=== PATIENT | female | born 1980 | race Caucasian/White ===

== ENCOUNTER 2017-04-02 19:52 | Emergency (ER) | payer MEDICAID ==
[~2017-04-02] VITALS: Ht 162.6 cm; Wt 56.5 kg
[~2017-04-02 19:52] MED LIST: CIPR500T4 PO; DICY10CA60 PO; IBUP-1542 PO; ONDA4TAB35 PO
[2017-04-02 19:57] VITALS: Ht 162.6 cm; Wt 56.5 kg
[2017-04-02] MEDS ORDERED: SOD CHLORIDE 0.9% 1,000 ML IV STA (20:14)
[2017-04-02] MEDS ORDERED: DIPHENHYDRAMINE 50 MG INJ IV STA (20:14)
[2017-04-02] MEDS ORDERED: KETOROLAC 30 MG INJ IV STA (20:14)
[2017-04-02] MEDS ORDERED: METOCLOPRAMIDE 10 MG INJ IV STA (20:14)
[2017-04-02 20:44] LABS: BASOPHIL # 0.1 10^3/ul (0.0-0.1); BASOPHILS % 0.5 % (0.0-2.0); EOSINOPHILS % 0.2 % (0.0-7.0); HEMATOCRIT 38.6 % (37.0-47.0); HEMOGLOBIN 12.5 g/dl (12.0-16.0); LYMPHOCYTES # 1.5 10^3/ul (0.8-2.9); LYMPHOCYTES % 12.9 % (15.0-51.0); MEAN CORPUSCULAR HEMOGLOBIN 29.4 pg (29.0-33.0); MEAN CORPUSCULAR HGB CONC 32.4 g/dl (32.0-37.0); MEAN CORPUSCULAR VOLUME 90.8 fl (82.0-101.0); MEAN PLATELET VOLUME 10.3 fl (7.4-10.4); MONOCYTE # 0.4 10^3/ul (0.3-0.9); MONOCYTES % 3.3 % (0.0-11.0); NEUTROPHIL # 9.8 10^3/ul (1.6-7.5); NEUTROPHILS % 82.8 % (39.0-77.0); PLATELET COUNT 169 10^3/UL (140-415); RED BLOOD COUNT 4.25 10^6/ul (4.20-5.40); RED CELL DISTRIBUTION WIDTH 12.4 % (11.5-14.5); WHITE BLOOD COUNT 11.8 10^3/ul (4.8-10.8)
[2017-04-02 20:59] LABS: INR 1.06; PROTIME 13.8 Sec (12.2-14.2); PT RATIO 1.1
[2017-04-02 21:00] LABS: PARTIAL THROMBOPLASTIN TIME 28.4 Sec (25.0-35.0)
[2017-04-02 21:05] LABS: CALCIUM 9.1 mg/dl (8.4-10.2); CREATININE 0.72 mg/dl (0.44-1.00); POTASSIUM 3.8 mmol/L (3.5-5.1)
[2017-04-02] MEDS ORDERED: NAPR-260 PO (22:24)
[2017-04-02] MEDS ORDERED: ONDA-43 PO (22:24)
--- NOTE | 2017-04-02 22:39 | ERD ---
ER Documentation Chief Complaint Date/Time DATE: 04/02/17 TIME: 22:36 Chief Complaint TORRES since this am, "getting worse". +nausea HPI This is a 36-year-old female that presents to the ER with a known history of migraine headaches complaining of a headache that started today. Headache is located to her forehead and radiates to the back of her head. Patient states that pain is throbbing in quality has been worsening throughout the day. Patient admits to nausea and nonbilious nonbloody vomiting. She admits to photophobia. Patient denies any fever or chills. She denies any cough or cold symptoms she denies any head trauma she denies any vision loss or vision changes. Patient is also complaining of feeling lightheaded and weak. She denies any chest pain or shortness of breath. ROS 12 point review of systems was done, all negative except per HPI. Medications Home Meds Active Scripts Ondansetron Hcl* (Zofran*) 4 Mg Tab, 4 MG PO Q4H Y for NAUSEA AND OR VOMITING, # 15 TAB Prov:YUE ZHOU 04/02/17 Naproxen* (Naprosyn*) 500 Mg Tablet, 500 MG PO BID Y for PAIN AND/OR INFLAMMATION, #30 TAB Prov:YUE ZHOU 04/02/17 Ciprofloxacin Hcl* (Ciprofloxacin Hcl*) 500 Mg Tablet, 500 MG PO BID for 7 Days , TAB Prov:BITA HAYNES NP 11/17/15 Ibuprofen* (Motrin*) 600 Mg Tab, 600 MG PO Q6H Y for PAIN AND OR ELEVATED TEMP, #30 TAB Prov:BITA HAYNES NP 11/17/15 Ondansetron Hcl* (Zofran* ODT) 4 mg -ODT Tab.disper, 4 MG PO Q8 Y for NAUSEA AND /OR VOMITING, #30 TAB Prov:BITA HAYNES NP 11/17/15 Dicyclomine Hcl* (Bentyl*) 10 Mg Capsule, 10 MG PO QID, #30 CAP Prov:BITA HAYNES NP 11/17/15 Reported Medications [none] Unknown Strength No Conflict Check 11/17/15 Allergies Allergies: Coded Allergies: No Known Allergy (Unverified , 06/02/14) PMhx/Soc History of Surgery: No Anesthesia Reaction: No Hx Neurological Disorder: Yes (migraine) Hx Respiratory Disorders: No Hx Cardiac Disorders: No Hx Psychiatric Problems: No Hx Miscellaneous Medical Probl: No Hx Alcohol Use: No Hx Substance Use: No Hx Tobacco Use: No Physical Exam Vitals Vital Signs Date Time Temp Pulse Resp B/P Pulse Ox O2 Delivery O2 Flow Rate FiO2 04/02/17 19:57 97.9 73 18 134/84 100 Physical Exam GENERAL: The patient is well developed and appropriate for usual state of health , in no apparent distress. HEENT: Atraumatic. Conjunctivae are pink. Pupils equal, round, and reactive to light. Extraocular muscles are grossly intact. Bilateral tympanic membranes are clear with no evidence of erythema, bulging or perforation. No sinus tenderness. NECK: C-spine is soft and supple. There is no cervical lymphadenopathy. CHEST: Clear to auscultation bilaterally. There are no rales, wheezes or rhonchi. HEART: Regular rate and rhythm. No murmurs, clicks, rubs or gallops. EXTREMITIES: Equal pulses bilaterally. There is no peripheral clubbing, cyanosis or edema. No focal swelling or erythema. Full range of motion. Grossly neurovascularly intact. NEURO: Alert and oriented. Cranial nerves II through XII are intact. Motor strength in all 4 extremities with 5/5 strength. Sensation grossly intact. Normal speech and gait. Negative Rhomberg. +2 DTRs. SKIN: There is no apparent rash or petechia. The skin is warm and dry. Result Diagram: 04/02/17202404/02/172024 Results 24 hrs Laboratory Tests Test 04/02/17 20:25 White Blood Count 11.810^3/ul Red Blood Count 4.2510^6/ul Hemoglobin 12.5g/dl Hematocrit 38.6% Mean Corpuscular Volume 90.8fl Mean Corpuscular Hemoglobin 29.4pg Mean Corpuscular Hemoglobin Concent 32.4g/dl Red Cell Distribution Width 12.4% Platelet Count 13779^3/UL Mean Platelet Volume 10.3fl Neutrophils % 82.8% Lymphocytes % 12.9% Monocytes % 3.3% Eosinophils % 0.2% Basophils % 0.5% Nucleated Red Blood Cells % 0.0/100WBC Neutrophils # 9.810^3/ul Lymphocytes # 1.510^3/ul Monocytes # 0.410^3/ul Eosinophils # 0.010^3/ul Basophils # 0.110^3/ul Nucleated Red Blood Cells # 0.010^3/ul Prothrombin Time 13.8Sec Prothrombin Time Ratio 1.1 INR International Normalized Ratio 1.06 Activated Partial Thromboplast Time 28.4Sec Sodium Level 144mmol/L Potassium Level 3.8mmol/L Chloride Level 103mmol/L Carbon Dioxide Level 28mmol/L Anion Gap 17 Blood Urea Nitrogen 17mg/dl Creatinine 0.72mg/dl Glucose Level 107mg/dl Calcium Level 9.1mg/dl Current Medications Medications (Trade) Dose Ordered Sig/Ary Route PRN Reason Start Time Stop Time Status Last Admin Dose Admin Sodium Chloride (NS) 1,000 ml @ 1,000 mls/hr Q1H STAT IV 04/02/17 20:14 04/02/17 21:13 DC 04/02/17 20:31 Metoclopramide HCl (Reglan) 10 mg ONCE STAT IV 04/02/17 20:14 04/02/17 20:17 DC 04/02/17 20:30 Ketorolac Tromethamine (Toradol) 30 mg ONCE STAT IV 04/02/17 20:14 04/02/17 20:17 DC 04/02/17 20:31 Diphenhydramine HCl (Benadryl) 25 mg ONCE STAT IV 04/02/17 20:14 04/02/17 20:17 DC 04/02/17 20:31 Procedures/MDM EKG was done [address] elevation no T-wave inversion signed by Dr. Donaldson Differential Diagnosis includes but is not limited to; tension headache, migraine headache, cluster headache, sinus headache, nonspecific febrile headache, trigeminal neurologia, subdural hematoma, subarachnoid bleeding, meningitis, encephalitis. Patient is neurologically intact with no focal neurological deficits. This is a 36-year-old female presents to the ER with a headache this is likely a migraine headache. Patient has an extensive past medical history of migraine headaches and her headache was resolved in the ER with Toradol, Benadryl, Reglan. Patient is afebrile and well-appearing. Suspicion for acute intracranial emergency is low and CT scan is not indicated at this time. Patient will be sent home with naproxen. She is to follow-up with her primary care provider within 1-2 days or return to ER sooner if symptoms worsen. My medical decision making was shared with the patient she understands and agrees with plan. Departure Diagnosis: Primary Impression: Migraine headache Condition: Stable Patient Instructions: Headache, Migraine (Classical) Additional Instructions: Llame al doctor MAANA y mike eliseo VIDHI PARA DENTRO DE 1-2 MARIN.Dgale a la secretaria que nosotros le instruimos hacer esta vidhi.Avise o llame si ortiz condicin se empeora antes de la vidhi. Regresa aqui si peor o no mejor. YUE ZHOU Apr 02, 2017 22:39
== END 2017-04-02 22:38 | disposition home or self-care (01) ==
LOC: FTE 19:52
DX: G43.909 Migraine, unspecified, not intractable, without status migrainosus (principal); R42 Dizziness and giddiness
CPT/HCPCS: 36415; 80048; 85025; 85610; 85730; 93005; 96374; 96375; J1200; J1885; J2765; J7030; Z7502

== ENCOUNTER 2017-10-07 19:54 | Emergency (ER) | END 2017-10-07 23:38 | disposition home or self-care (01) ==

== ENCOUNTER 2017-10-18 08:13 | Emergency (ER) | END 2017-10-18 09:26 | disposition home or self-care (01) ==

== ENCOUNTER 2019-02-18 07:43 | Emergency (ER) | payer MEDICAID ==
[~2019-02-18] VITALS: Ht 162.6 cm; Wt 53.0 kg
[~2019-02-18 07:43] MED LIST changes: +ASPI1TAB31 PO; +DICY10CA40 PO; -DICY10CA60 PO; +NAPR-985 PO; +ONDA4TAB13 PO
[2019-02-18 07:46] VITALS: BP 135/78; PULSE 56; RESP 18; Ht 162.6 cm; Wt 53.0 kg
[2019-02-18] MEDS ORDERED: ONDANSETRON 4 MG INJ IV STA (08:01)
[2019-02-18] MEDS ORDERED: KETOROLAC 30 MG INJ IV STA (08:01)
[2019-02-18] MEDS ORDERED: SOD CHLORIDE 0.9% 1,000 ML IV STA (08:01)
[2019-02-18] MEDS ORDERED: SOD CHLORIDE 0.9% 100 ML ONE (08:42)
[2019-02-18] MEDS ORDERED: IOHEXOL 300MG/ML 150 ML BTL ONE (08:42)
[2019-02-18] MEDS ORDERED: ACET325T33 PO (09:45)
[2019-02-18] MEDS ORDERED: DOCU-144 PO (09:45)
[2019-02-18] MEDS ORDERED: NITR-58 PO (09:45)
[2019-02-18] MEDS ORDERED: ONDA4TAB14 PO (09:45)
--- NOTE | 2019-02-18 11:32 | ERD ---
ER Documentation Chief Complaint Chief Complaint abdominal pain , nausea and vomiting x 2 days HPI 38-year-old female presenting with abdominal pain nausea and vomiting for the last 2 days. Patient states that she has had constant pain. No changes in urination or bowel movement. She has not taken medications for the symptoms. D enies chest pain or shortness of breath. Denies fevers. Denies any allergies to medications. Medical problems as migraines. Surgical history denies. Social history denies ROS All systems reviewed and are negative except as per history of present illness. Medications Home Meds Active Scripts Ondansetron (Ondansetron Odt) 4 Mg Tab.rapdis, 4 MG PO Q6H PRN for NAUSEA AND/OR VOMITING, #10 TAB Prov:PRINCESS ANDERSEN PA-C 02/18/19 Acetaminophen* (Tylenol*) 325 Mg Tablet, 2 TAB PO Q6 PRN for PAIN AND OR ELEVATED TEMP, #20 TAB Prov:PRINCESS ANDERSEN PA-C 02/18/19 Docusate Sodium* (Colace*) 100 Mg Capsule, 100 MG PO TID, #30 CAP Prov:PRINCESS ANDERSEN PA-C 02/18/19 Nitrofurantoin Monohyd Macrocr* (Macrobid*) 100 Mg Capsr, 100 MG PO BID for 14 Days, CAP Prov:PRINCESS ANDERSEN PA-C 02/18/19 Ibuprofen* (Motrin*) 600 Mg Tab, 600 MG PO Q6, #30 TAB Prov:ALDAIR SCHWARTZ PA-C 10/18/17 Aspirin/Acetaminophen/Caffeine (Excedrin Migraine Caplet) 1 Each Tablet, 1 EACH PO Q6, #20 TAB Prov:VILMA GODINEZ NP 10/07/17 Ondansetron Hcl* (Zofran*) 4 Mg Tab, 4 MG PO Q4H PRN for NAUSEA AND OR VOMITING, #15 TAB Prov:YUE ZHOU 04/02/17 Naproxen* (Naprosyn*) 500 Mg Tablet, 500 MG PO BID PRN for PAIN AND/OR INFLAMMATION, #30 TAB Prov:YUE ZHOU 04/02/17 Ciprofloxacin Hcl* (Ciprofloxacin Hcl*) 500 Mg Tablet, 500 MG PO BID for 7 Days, TAB Prov:BITA HAYNES NP 11/17/15 Ibuprofen* (Motrin*) 600 Mg Tab, 600 MG PO Q6H PRN for PAIN AND OR ELEVATED TEMP, #30 TAB Prov:BITA HAYNES NP 11/17/15 Ondansetron Hcl* (Zofran* ODT) 4 mg -ODT Tab.disper, 4 MG PO Q8 PRN for NAUSEA AND/OR VOMITING, #30 TAB Prov:BITA HAYNES NP 11/17/15 Dicyclomine HCl (Dicyclomine HCl) 10 Mg Capsule, 10 MG PO QID, #30 CAP Prov:BITA HAYNES SHIFT MGR 11/17/15 Reported Medications [none] Unknown Strength No Conflict Check 11/17/15 Allergies Allergies: Coded Allergies: No Known Allergy (Unverified , 10/18/17) PMhx/Soc History of Surgery: No Anesthesia Reaction: No Hx Neurological Disorder: Yes (Migraine) Hx Respiratory Disorders: No Hx Cardiac Disorders: No Hx Psychiatric Problems: No Hx Miscellaneous Medical Probl: No Hx Alcohol Use: No Hx Substance Use: No Hx Tobacco Use: No FmHx Family History: No diabetes, No coronary disease, No other Physical Exam Vitals Vital Signs Date Temp Pulse Resp B/P (MAP) Pulse Ox O2 O2 Flow FiO2 Time Delivery Rate 02/18/19 98.3 56 18 135/78 99 07:46 (97) Physical Exam GENERAL: The patient is well-appearing, well-nourished, in no acute distress HEENT: Atraumatic. Conjunctivae are pink. Pupils equal, round, and reactive to light. There is no scleral icterus. Tympanic membranes clear bilaterally. Oropharynx clear. No nystagmus or photophobia. CHEST: Clear to auscultation bilaterally. There are no rales, wheezes or rhonchi. HEART: Regular rate and rhythm. No murmurs, clicks, rubs or gallops. ABDOMEN: Normal active bowel sounds. No distention. No organomegaly. Generalized tenderness palpation with no rigidity fell on exam. Result Diagram: 02/18/19 0807 02/18/19 0807 Results 24 hrs Laboratory Tests Test 02/18/19 08:07 02/18/19 08:08 White Blood Count 8.6 10^3/ul Red Blood Count 4.47 10^6/ul Hemoglobin 13.4 g/dl Hematocrit 40.3 % Mean Corpuscular Volume 90.2 fl Mean Corpuscular Hemoglobin 30.0 pg Mean Corpuscular Hemoglobin Concent 33.3 g/dl Red Cell Distribution Width 12.7 % Platelet Count 185 10^3/UL Mean Platelet Volume 10.3 fl Immature Granulocytes % 0.200 % Neutrophils % 74.0 % Lymphocytes % 19.8 % Monocytes % 4.8 % Eosinophils % 0.5 % Basophils % 0.7 % Nucleated Red Blood Cells % 0.0 /100WBC Immature Granulocytes # 0.020 10^3/ul Neutrophils # 6.4 10^3/ul Lymphocytes # 1.7 10^3/ul Monocytes # 0.4 10^3/ul Eosinophils # 0.0 10^3/ul Basophils # 0.1 10^3/ul Nucleated Red Blood Cells # 0.0 10^3/ul Urine Color YELLOW Urine Clarity CLOUDY Urine pH 6.0 Urine Specific [place] 1.014 Urine Ketones NEGATIVE mg/dL Urine Nitrite NEGATIVE mg/dL Urine Bilirubin NEGATIVE mg/dL Urine Urobilinogen NEGATIVE mg/dL Urine Leukocyte Esterase 1+ Pasquale/ul Urine Microscopic RBC 5 /HPF Urine Microscopic WBC 10 /HPF Urine Squamous Epithelial Cells MANY /HPF Urine Hemoglobin NEGATIVE mg/dL Urine Glucose NEGATIVE mg/dL Urine Total Protein NEGATIVE mg/dl Sodium Level 144 mmol/L Potassium Level 3.6 mmol/L Chloride Level 106 mmol/L Carbon Dioxide Level 30 mmol/L Anion Gap 8 Blood Urea Nitrogen 11 mg/dl Creatinine 0.75 mg/dl Est Glomerular Filtrat Rate mL/min > 60 mL/min Glucose Level 96 mg/dl Calcium Level 9.3 mg/dl Total Bilirubin 0.6 mg/dl Direct Bilirubin 0.00 mg/dl Indirect Bilirubin 0.6 mg/dl Aspartate Amino Transf (AST/SGOT) 17 IU/L Alanine Aminotransferase (ALT/SGPT) 12 IU/L Alkaline Phosphatase 78 IU/L Total Protein 8.2 g/dl Albumin 4.2 g/dl Globulin 4.00 g/dl Albumin/Globulin Ratio 1.05 Lipase 32 U/L POC Beta HCG, Qualitative NEGATIVE Current Medications Medications Dose Sig/Ary Start Time Status Last (Trade) Ordered Route PRN Stop Time Admin Dose Reason Admin Sodium 1,000 ml @ Q1H STAT 02/18/19 DC 02/18/19 Chloride 1,000 mls/hr IV 08:01 08:13 02/18/19 09:00 Ondansetron 4 mg ONCE STAT 02/18/19 DC 02/18/19 HCl (Zofran IV 08:01 08:12 Inj) 02/18/19 08:02 Ketorolac 30 mg ONCE STAT 02/18/19 DC 02/18/19 Tromethamine IV 08:01 08:13 (Toradol) 02/18/19 08:02 IV Flush 10 ml STK-MED 02/18/19 DC 02/18/19 (NS 10 ml) ONCE .ROUTE 08:42 09:14 02/18/19 08:43 Sodium 100 ml @ ud STK-MED 02/18/19 DC 02/18/19 Chloride ONCE .ROUTE 08:42 09:15 02/18/19 08:43 Iohexol 150 ml STK-MED 02/18/19 DC 02/18/19 (Omnipaque ONCE .ROUTE 08:42 09:15 300mg/ ml) 02/18/19 08:43 Procedures/MDM DIAGNOSTIC IMAGING REPORT Patient: MYLES MONTERROSO : 1980 Age: 38 Sex: F MR #: [id number] DOS: 02/18/19 0801 Ordering MD: BENJAMIN ANDERSEN PA-C Location: [facility] Room/Bed: PROCEDURE: CT abdomen and pelvis with contrast. CLINICAL INDICATION: abdominal pain TECHNIQUE: CT scan of the abdomen and pelvis with contrast was performed on a multi-slice CT scanner . The patient was scanned after administration of 90 cc of Omnipaque-300 intravenous contrast. Sagittal and coronal reformatted images were obtained from the axial source images. One or more of the following dose reduction techniques were used: - Automated exposure control. - Adjustment of the mA and/or kV according to patient size. - Use of iterative reconstruction technique. DICOM images are available DLP 315.7 mGycm. CTDIvol 6.3 mGy COMPARISON: None. FINDINGS: Lower thorax:The lung bases are clear. Liver: There is uniform enhancement of the liver with no focal lesion. The portal vein is intact without thrombus. Biliary: The gallbladder is unremarkable without inflammation. No biliary dilatation. Pancreas: Homogeneous density and enhancement of the pancreas without visible focal lesion or cystic abnormality. There is no pancreatic ductal dilatation. Spleen: Unremarkable without enlargement or focal lesion. Adrenal Glands: The adrenal glands are within normal limits without mass. Urinary: The kidneys are symmetric in size bilaterally with symmetric enhancement. There are no visible renal or ureteral stones. There is no hydronephrosis. Gastrointestinal: There is a mildly fecal filled colon without obstruction or appendicitis. Lymph nodes: There are no enlarged lymph nodes. Vascular: The aorta is unremarkable. Peritoneum/mesentery: There is no free air. Reproductive organs: The uterus and adnexal structures are grossly unremarkable. Mild fluid is seen in the cul-de-sac which is of indeterminate significance. Musculoskeletal: There is no acute osseous abnormality Other: None IMPRESSION: There is a mildly fecal filled colon without obstruction or appendicitis. Mild free fluid in the pelvis is of indeterminate significance and may be physiologic in nature. The pelvic organs appear grossly unremarkable on CT however fine detail is limited. DIAGNOSTIC IMAGING REPORT Patient: MYLES MONTERROSO : 1980 Age: 38 Sex: F MR #: [id number] DOS: 02/18/19 0801 Ordering MD: BENJAMIN ANDERSEN PA-C Location: [facility] Room/Bed: PROCEDURE: US Abdomen. CLINICAL INDICATION: abdominal pain TECHNIQUE: Multiple real-time images were acquired of the patient's abdomen utilizing a high resolution transducer. COMPARISON: CT of the same date FINDINGS: The liver demonstrates normal echogenicity and size and no focal lesions are seen. No gallstones are identified within the gallbladder. There is no pericholecystic fluid or gallbladder wall thickening. No intra or extrahepatic biliary dilatation is seen. The common bile duct measures 4 mm in maximal dimension. The visualized portions of the pancreas are unremarkable. No free fluid is identified. The right kidney measures 10 cm without hydronephrosis. Visualized portion of the aorta and IVC are unremarkable. IMPRESSION: Unremarkable abdominal ultrasound. MDM: 38-year-old female presenting with abdominal pain. I have low suspicion for acute abdominal emergency. Exam is non-concerning. Patient CT is within normal limits. Patient does have findings concerning for urinary tract infection so we will treat with supportive medications. Patient is told if symptoms change or worsen to return immediately to the ER. Patient is recommended follow-up with primary care. All questions answered at discharge Departure Diagnosis: Primary Impression: Abdominal pain Additional Impression: UTI (urinary tract infection) Condition: Stable Patient Instructions: Abdominal Pain, Understanding Urinary Tract Infections (UTIs) Referrals: [facility] YOU HAVE RECEIVED A MEDICAL SCREENING EXAM AND THE RESULTS INDICATE THAT YOU DO NOT HAVE A CONDITION THAT REQUIRES URGENT TREATMENT IN THE EMERGENCY DEPARTMENT. FURTHER EVALUATION AND TREATMENT OF YOUR CONDITION CAN WAIT UNTIL YOU ARE SEEN IN YOUR DOCTORS OFFICE WITHIN THE NEXT 1-2 DAYS. IT IS YOUR RESPONSIBILITY TO MAKE AN APPOINTMENT FOR FOLOW-UP CARE. IF YOU HAVE A PRIMARY DOCTOR --you should call your primary doctor and schedule an appointment IF YOU DO NOT HAVE A PRIMARY DOCTOR YOU CAN CALL OUR PHYSICIAN REFERRAL HOTLINE AT IF YOU CAN NOT AFFORD TO SEE A PHYSICIAN YOU CAN CHOSE FROM THE FOLLOWING [facility] [address] [facility] [address] [facility] [facility] [address] [facility] [address] [facility] [address] [facility] [facility]. [address] Additional Instructions: FOLLOW UP WITH YOUR PRIMARY CARE PHYSICIAN TOMORROW.Return to this facility if you are not improving as expected. PRINCESS ANDERSEN PA-C Feb 18, 2019 11:31
== END 2019-02-18 09:51 | disposition home or self-care (01) ==
LOC: FTE 07:43
DX: N39.0 Urinary tract infection, site not specified (principal); Z79.82 Long term (current) use of aspirin
CPT/HCPCS: 74177; 76705; 80053; 81001; 81025; 83690; 85025; J1885; J2405; J7030; Q9967; Z7610; 36415; 96361; 96374; 96375